=== PATIENT | female | born 1985 | race Caucasian/White ===

== ENCOUNTER 2022-09-28 16:25 | Emergency (ER) | payer SELFPAY ==
[2022-09-28] MEDS ORDERED: Sodium Chloride 0.9% 10 ML Syringe FLUSH PRN (16:50)
[2022-09-28] MEDS ORDERED: Ondansetron 4 MG/2 ML SDV IVPUSH ONE (16:51)
[2022-09-28] MEDS ORDERED: Meclizine 25 MG Tab PO ONE ×2 (16:52→20:42)
[2022-09-28] MEDS ORDERED: Sodium Chloride 0.9% 1,000 ML IV SCH (17:00)
[2022-09-28 17:56] LABS: BASOPHILS ABSOLUTE AUTO 0.03 K/mm3 (0.01-0.08); BASOPHILS PERCENT AUTO 0.2 % (0.1-1.2); EOSINOPHILS ABSOLUTE AUTO 0.01 K/mm3 (0.04-0.36); EOSINOPHILS PERCENT AUTO 0.1 (0.7-5.8); HEMATOCRIT 44.4 % (34.1-44.9); HEMOGLOBIN 14.7 gm/dl (11.2-15.7); IMMATURE GRAN ABSOLUTE AUTO 0.05 K/mm3 (0.00-0.10); IMMATURE GRAN PERCENT AUTO 0.4 % (<=1.0); LYMPHOCYTES ABSOLUTE AUTO 1.27 K/mm3 (1.18-3.74); LYMPHOCYTES PERCENT AUTO 9.9 % (19.3-51.7); MEAN CORPUSCULAR HEMOGLOBIN 30.2 pg (25.6-32.2); MEAN CORPUSCULAR HGB CONC 33.1 g/dl (32.2-35.5); MEAN CORPUSCULAR VOLUME 91.2 fl (79.4-94.8); MEAN PLATELET VOLUME 8.6 fl (9.4-12.3); MONOCYTES ABSOLUTE AUTO 1.71 K/mm3 (0.24-0.36); MONOCYTES PERCENT AUTO 13.3 % (4.7-12.5); NEUTROPHILS ABSOLUTE AUTO 9.77 K/mm3 (1.56-6.13); NEUTROPHILS PERCENT AUTO 76.1 % (34.0-71.1); PLATELET COUNT,PLT 296 K/mm3 (182-369); RED BLOOD CELL COUNT 4.87 M/mm3 (3.98-5.22); WHITE BLOOD CELL COUNT,WBC 12.84 K/mm3 (3.98-10.04)
[2022-09-28 18:27] LABS: ALANINE AMINOTRANSFERASE,ALT 23 U/L (14-59); ALBUMIN 3.8 g/dl (3.4-5.0); ALKALINE PHOSPHATASE 81 U/L (46-116); ANION GAP 14.4 (5-15); ASPARTATE AMNIOTRANSFERASE,AST 12 U/L (15-37); BILIRUBIN TOTAL 0.5 mg/dL (0.2-1.0); BLOOD UREA NITROGEN,BUN 12 mg/dL (7-18); BUN/CREATININE RATIO 13.3 (14-18); CALCIUM 9.2 mg/dL (8.5-10.1); CARBON DIOXIDE,CO2 25 mEq/L (21-32); CHLORIDE,CL 101 mEq/L (98-107); CREATININE 0.9 mg/dL (0.55-1.02); EST CRCL DRUG DOSING (CG) 91.18 mL/min; ESTIMATED GFR 86 mL/min (>60); GLUCOSE RANDOM 98 mg/dL (70-99); POTASSIUM,K 4.4 mEq/L (3.5-5.1); PROTEIN TOTAL,TP 7.6 g/dl (6.4-8.2); SODIUM,NA 136 mEq/L (136-145)
[2022-09-28 18:30] LABS: TROPONIN I HIGH SENSITIVITY < 4 pg/mL (<=51)
[2022-09-28 19:23] LABS: APPEARANCE,URINE CLOUDY (Clear); BILIRUBIN,URINE NEGATIVE (Negative); COLOR,URINE YELLOW (Yellow); GLUCOSE,URINE NEGATIVE (Negative); KETONES,URINE 1+ (Negative); LEUKOCYTE ESTERASE,URINE 1+ (Negative); NITRITE,URINE POSITIVE (Negative); OCCULT BLOOD,URINE TRACE-INTACT (Negative); PROTEIN,URINE 2+ (Negative)
[2022-09-28 19:35] LABS: BACTERIA,URINE MANY /hpf (FEW); MUCUS,URINE FEW /hpf (FEW); WBC,URINE 30-40 /hpf (0-5)
[2022-09-28] MEDS ORDERED: Cephalexin 500 MG Cap PO ONE (20:42)
== END 2022-09-28 21:08 | disposition home or self-care (01) ==
LOC: JD.ED 16:25
DX: H81.11 Benign paroxysmal vertigo, right ear (principal); N30.00 Acute cystitis without hematuria; Z88.0 Allergy status to penicillin
CPT/HCPCS: 36415; 70450; 74176; 80053; 81001; 81025; 84484; 85025; 96361; 96374; 99284; A9270; J2405; J3490; J7030